=== PATIENT | male | born 1970 | race Caucasian/White ===

== ENCOUNTER 2024-02-12 13:47 | Emergency (ER) | payer BC, SELFPAY ==
--- NOTE | ~2024-02-12 | XR_ITS ---
EXAMINATION: XR ABDOMEN KUB CLINICAL INDICATION: Constipation COMPARISON: None available. TECHNIQUE: AP view of the abdomen. FINDINGS: The bowel gas pattern is normal with no evidence of ileus or obstruction. Moderate volume of stool throughout the colon. Largest collection in the ascending colon in the pelvis. 1 cm calcification of the left iliac wing of uncertain significance.. The bones are unremarkable. XR/XR KUB IMPRESSION: Moderate volume of stool throughout the colon. Nonobstructive bowel pattern. Electronically signed by: Brendan Martínez MD 02/12/2024 04:49 PM EDT RP
[2024-02-12 14:07] VITALS: BP 126/86; PULSE 68; RESP 18; TEMP 36.6; O2SAT 99; BMI 22.8
[2024-02-12 16:38] LABS: MANUAL DIFF FLAG NO
[2024-02-12 16:39] LABS: Basophils Absolute Auto 0.1 X10*3/uL (0.0-0.2); Basophils Percent Auto 0.7 % (0-2); Eosinophils Absolute Auto 0.1 X10*3/uL (0.0-0.4); Eosinophils Percent Auto 0.9 % (0-4); Hematocrit 42.8 % (42.0-52.0); Hemoglobin 15.3 g/dl (14.0-18.0); Imm Gran Abs Auto 0.02 X10*3/uL (0.00-0.03); Imm Gran Pct Auto 0.3 % (0.0-0.4); Lymphocytes Percent Auto 13.1 % (20-40); Mean Corpuscular HGB Conc 35.7 g/dl (31.0-36.0); Mean Corpuscular Hemoglobin 32.1 pg (27.0-33.0); Mean Corpuscular Volume 89.9 fL (80.0-98.0); Mean Platelet Volume 8.5 fL (9.4-12.4); Monocytes Absolute Auto 0.5 X10*3/uL (0.1-1.2); Monocytes Percent Auto 5.9 % (2-11); Neutrophils Absolute Auto 6.1 x10*3/uL (2.0-8.3); Neutrophils Percent Auto 79.1 % (45-73); Platelet Count 236 X10*3/uL (160-400); Red Blood Count 4.76 X10*6/uL (4.60-5.80); Red Cell Distribution Width 12.9 % (11.0-16.0); White Blood Count 7.7 X10*3/uL (4.8-10.8)
[2024-02-12 16:57] LABS: Alanine Aminotransferase 24 U/L (0-40); Albumin Level 4.5 g/dL (3.5-5.0); Alkaline Phosphatase 55 U/L (39-117); Anion Gap 9 (12-20); Aspartate Amino Transferase 19 U/L (5-37); Bilirubin Total 0.8 mg/dL (0.0-1.0); Blood Urea Nitrogen 11 mg/dL (9-16); Calcium 9.6 mg/dL (8.4-10.2); Carbon Dioxide 31 mmol/L (22-29); Chloride 107 mmol/L (96-108); Estimated Glomerular Filt Rate > 60; Glucose Random 97 mg/dL (60-115); Potassium 4.3 mmol/L (3.3-5.1); Sodium 143 mmol/L (135-145)
[2024-02-12 17:40] VITALS: BP 138/85; PULSE 67; RESP 18; TEMP 37.1; O2SAT 99
--- NOTE | 2024-02-12 18:44 | ED.GENADULT ---
HPI - General Adult General Chief complaint: Abdominal Pain Stated complaint: bowel trouble/pain Time Seen by Provider: 02/12/24 17:55 Source: patient, RN notes reviewed and old records reviewed Mode of arrival: ambulatory Limitations: no limitations History of Present Illness ED Provider: Sung ARROYO narrative: 53-year-old male presents for evaluation constipation and rectal pain. Patient states he has not had a bowel movement. He generally follows with Dr. Galindo for GI He reports some lower abdominal and rectal pain since yesterday. He reports a history of hemorrhoids and believes this feels similar He denies any fevers, chills. He reports he has been passing gas today but feels as though he is passing less gas now than he was this morning He has a previous history of pyloric stenosis repair as a child but no other abdominal surgical history He has not tried any [id number] medications to help alleviate his symptoms Related Data Previous Rx's ?Medication ?Instructions ?Recorded peg 3350-electrolytes 236 240 ml PO Q10M #4,000 mL 02/12/24 gram-22.74 gram-6.74 gram-5.86 gram solution (Golytely) polyethylene glycol 3350 17 17 g PO DAILY 2 weeks #238 grams 02/12/24 gram/dose oral powder (Miralax) Allergies Allergy/AdvReac Type Severity Reaction Status Date / Time No Known Allergies Allergy Verified 02/12/24 14:09 Review of Systems Constitutional: Constitutional: Denies body ache(s), Denies chills and Denies fever(s) ENT: Denies sore throat Cardiovascular: Cardiovascular: Denies chest pain Respiratory: Respiratory: Denies cough Gastrointestinal: Gastrointestinal: Reports abdominal pain, Denies melena, Denies hematochezia, Reports constipation, Denies nausea and Denies vomiting Musculoskeletal: Musculoskeletal: Denies back pain Integumentary/Breasts: Skin/Breast: Denies rash PMFSH Social History Social History Advance Directives: No Advance Directives Information Provided: No Do you have a plan to hurt others: No Plan Physical Exam ED Vital Signs: Vital Signs - 24 hr 02/12/24 14:07 02/12/24 17:40 Temperature 97.8 F 98.8 F Pulse Rate 68 67 Respiratory Rate 18 18 Blood Pressure 126/86 138/85 Pulse Oximetry 99 99 Oxygen Delivery Method Room Air Room Air BMI result Body Mass Index 22.8 Const General: healthy appearing, comfortable, no acute distress, alert and awake Nutritional Appearance: well nourished Orientation/consciousness: patient oriented x3 HENMT Head: Yes normocephalic and Yes atraumatic Eyes Eyelids: Yes eyelids normal Conjunctivae: conjunctivae normal Sclerae: sclerae normal Corneas: corneas normal Pupils: Equal, round and reactive pupils present EOM: EOMs intact bilaterally Neck Neck: Yes full ROM Resp Effort & Inspection: normal respiratory effort, able to speak in complete sentences and not labored GI Other: Patient consented to rectal inspection only. No obvious hemorrhoids or lesions Inspection: No distended Palpation (GI): Soft to palpation, not firm, nontender, no guarding and not rigid Skin General skin exam: no rashes or lesions noted and elasticity normal Neuro General: patient oriented x3 Cranial nerves: Yes Equal, round and reactive pupils present and Yes Bilaterally intact EOM present Cognition (Neuro): normal cognition Extrem Other: Moving all extremities well without any obvious deformities Medical Decision Making Medical Decision Making MDM Narrative: 53-year-old male presents for evaluation of constipation. His labs are reviewed without significant abnormality. His x-ray/KUB shows moderate constipation worse in the ascending colon. Discussed possible CT imaging with the patient but this was deferred at this time which I feel is appropriate. The patient is still passing gas, there was no evidence of obstruction on the x-ray. Will treat his constipation with MiraLax, fiber supplementation as well as GoLYTELY until he has 2 bowel movements Differential Diagnosis Differential Diagnoses: The differential diagnosis associated with the presentation includes Constipation Rectal pain Internal hemorrhoid External hemorrhoid Bowel obstruction Lab Data MDM Lab Attestation statement: I reviewed the patient's lab results. No leukocytosis or anemia. Normal platelet count. No significant electrolyte abnormalities. The patient's CO2 is elevated, this may be related to sleep apnea. 02/12/24 16:15 02/12/24 16:15 Labs: Lab Results 02/12/24 Range/Units 16:15 WBC 7.7 (4.8-10.8) X10*3/uL RBC 4.76 (4.60-5.80) X10*6/uL Hgb 15.3 (14.0-18.0) g/dl Hct 42.8 (42.0-52.0) % MCV 89.9 (80.0-98.0) fL MCH 32.1 (27.0-33.0) pg MCHC 35.7 (31.0-36.0) g/dl RDW 12.9 (11.0-16.0) % Plt Count 236 (160-400) X10*3/uL MPV 8.5 L (9.4-12.4) fL Immature Gran % (Auto) 0.3 (0.0-0.4) % Neut % (Auto) 79.1 H (45-73) % Lymph % (Auto) 13.1 L (20-40) % [place] % (Auto) 5.9 (2-11) % Eos % (Auto) 0.9 (0-4) % Baso % (Auto) 0.7 (0-2) % Lymph # (Auto) 1.0 L (1.2-4.9) X10*3/uL [place] # (Auto) 0.5 (0.1-1.2) X10*3/uL Eos # (Auto) 0.1 (0.0-0.4) X10*3/uL Baso # (Auto) 0.1 (0.0-0.2) X10*3/uL Abs Immat Gran (auto) 0.02 (0.00-0.03) X10*3/uL Absolute Neuts (auto) 6.1 (2.0-8.3) x10*3/uL Absolute Nucleated RBC 0.000 (0.0-0.012) X10*3/uL Nucleated RBC % (auto) 0.0 (0.0-0.2) /100WBC Sodium 143 (135-145) mmol/L Potassium 4.3 (3.3-5.1) mmol/L Chloride 107 (96-108) mmol/L Carbon Dioxide 31 H (22-29) mmol/L Anion Gap 9 L (12-20) BUN 11 (9-16) mg/dL Creatinine 1.12 (0.5-1.4) mg/dL Estim Creat Clear Calc 75.0 Estimated GFR > 60 Random Glucose 97 (60-115) mg/dL Calcium 9.6 (8.4-10.2) mg/dL Total Bilirubin 0.8 (0.0-1.0) mg/dL AST 19 (5-37) U/L ALT 24 (0-40) U/L Alkaline Phosphatase 55 (39-117) U/L Total Protein 7.0 (6.5-8.0) g/dL Albumin 4.5 (3.5-5.0) g/dL Independent Interpretation I performed an independent interpretation of an: Plain X-Ray (Agree with Radiology, moderate constipation) Radiology Impression Discussion of test interpretation with radiology: I have reviewed the radiologist's reading. Radiologist Impression: FINDINGS: The bowel gas pattern is normal with no evidence of ileus or obstruction. Moderate volume of stool throughout the colon. Largest collection in the ascending colon in the pelvis. 1 cm calcification of the left iliac wing of uncertain significance.. The bones are unremarkable. XR/XR KUB IMPRESSION: Moderate volume of stool throughout the colon. Nonobstructive bowel pattern. Electronically signed by: Brendan Martínez MD 02/12/2024 04:49 PM EDT RP Tests considered The following testing was considered but not selected: Consider CT scan of the abdomen pelvis but was ultimately deferred Discharge Plan Discharge Clinical Impression: Constipation Patient Disposition: Home, Self-Care Instructions: Constipation (ED), High Fiber Diet (ED) Additional Instructions: Your x-ray shows constipation but no evidence of obstruction. I recommend that you use an enema to help with discomfort I would take MiraLax every night for the next 2 weeks and fiber supplements every night for the next 2 weeks I prescribed GoLYTELY, you may drink 8 oz every 10-15 minutes until you start to have a bowel movement I do not see any clear external hemorrhoids Call your GI doctor, Dr. Galindo to schedule follow-up Prescriptions: New polyethylene glycol 3350 [Miralax] 17 gram/dose powder 17 g PO DAILY 14 Days Qty: 238 0RF peg 3350-electrolytes [Golytely] 236-22.74-6.74 -5.86 gram recon soln 240 ml PO Q10M Qty: 4000 0RF Rx Instructions: until fecal effluent is clear Print Language: Mexican
--- NOTE | 2024-02-12 18:57 | PC.NURSE ---
received report from Sarah GARCIA, assume care of pt at this time
[2024-02-12 19:10] VITALS: BP 138/85; PULSE 67; RESP 18; TEMP 37.1; O2SAT 97
== END 2024-02-12 19:10 | disposition home or self-care (01) ==
PROVIDERS: Physician Assistant; Emergency Provider Internal Medicine; PCP Family Medicine
DX: K59.00 Constipation, unspecified (principal); K62.89 Other specified diseases of anus and rectum
CPT/HCPCS: 36415; 74018; 80053; 85025; 99283